=== PATIENT | female | born 1990 | race Caucasian/White ===

== ENCOUNTER 2017-03-04 20:22 | Emergency (ER) | payer BC, MEDICAID ==
[~2017-03-04] VITALS: Ht 165.1 cm; Wt 59.0 kg
[2017-03-04 21:50] VITALS: BP 105/72
== END 2017-03-04 22:05 | disposition home or self-care (01) ==
LOC: ED 21:55
DX: R07.89 Other chest pain (principal); S49.91XA Unspecified injury of right shoulder and upper arm, initial encounter; V49.40XA Driver injured in collision with unspecified motor vehicles in traffic accident, initial encounter; Y93.89 Activity, other specified; Y99.8 Other external cause status; Y92.488 Other paved roadways as the place of occurrence of the external cause
CPT/HCPCS: 71020; 93005; 99284

== ENCOUNTER 2017-06-11 14:48 | Emergency (ER) | payer BC ==
[~2017-06-11] VITALS: Ht 167.6 cm; Wt 57.3 kg
[2017-06-11 15:11] VITALS: BP 98/58
[2017-06-11] MEDS ORDERED: SODIUM CHLORIDE FLUSH 10ML SYR IVF ONE (15:30)
[2017-06-11 15:56] LABS: BASOPHILS # (AUTO) 0.04 x10^3/uL (0-0.1); BASOPHILS % (AUTO) 0 % (0-1); EOSINOPHILS # (AUTO) 0.24 x10^3/uL (0-0.4); EOSINOPHILS % (AUTO) 2 % (1-7); LYMPHOCYTES % (AUTO) 19 % (22-44); MD NO; MEAN CORPUSCULAR HGB CONC 34.2 g/dL (32.4-35.8); MEAN CORPUSCULAR VOLUME 90.8 fL (80-100); MEAN PLATELET VOLUME 8.6 fL (7.4-10.4); MONOCYTES # (AUTO) 0.41 x10^3/uL (0.2-0.8); MONOCYTES % (AUTO) 4 % (2-9); NEUTROPHILS # (AUTO) 8.77 x10^3/uL (1.8-6.8); NEUTROPHILS % (AUTO) 75 % (42-75); PLATELET COUNT 253 x10^3/uL (130-400); RED CELL DISTRIBUTION WIDTH 13.5 % (9.6-15.2)
[2017-06-11 16:09] LABS: ALBUMIN 3.8 g/dL (3.4-5.0); ANION GAP 10 mmol/L (5-15); CALCIUM 9.1 mg/dL (8.5-10.1); CHLORIDE 109 mmol/L (98-107)
[2017-06-11] MEDS ORDERED: ACETAMINOPHEN 325 MG TABLET ONE (17:57)
[2017-06-11] MEDS ORDERED: ACETAMINOPHEN 325 MG TABLET PO ONE (18:00)
== END 2017-06-11 18:49 | disposition home or self-care (01) ==
LOC: ED 16:54
DX: O20.0 Threatened abortion (principal); Z3A.12 12 weeks gestation of pregnancy; O99.331 Smoking (tobacco) complicating pregnancy, first trimester
CPT/HCPCS: 36415; 76801; 80048; 82040; 84702; 85025; 86901; 99285

== ENCOUNTER 2017-07-09 21:21 | Emergency (ER) | payer BC ==
[~2017-07-09] VITALS: Ht 165.1 cm; Wt 58.4 kg
[2017-07-09 21:23] VITALS: BP 99/64
[2017-07-09 23:25] LABS: MICROSCOPIC AUTO
[2017-07-09 23:25] LABS: BASOPHILS # (AUTO) 0.03 x10^3/uL (0-0.1); BASOPHILS % (AUTO) 0 % (0-1); EOSINOPHILS # (AUTO) 0.31 x10^3/uL (0-0.4); EOSINOPHILS % (AUTO) 3 % (1-7); LYMPHOCYTES # (AUTO) 2.46 x10^3/uL (1-3.4); LYMPHOCYTES % (AUTO) 23 % (22-44); MD NO; MEAN CORPUSCULAR HEMOGLOBIN 30.8 pg (27.0-34.8); MEAN CORPUSCULAR HGB CONC 33.7 g/dL (32.4-35.8); MEAN CORPUSCULAR VOLUME 91.3 fL (80-100); MEAN PLATELET VOLUME 8.5 fL (7.4-10.4); MONOCYTES # (AUTO) 0.48 x10^3/uL (0.2-0.8); MONOCYTES % (AUTO) 5 % (2-9); NEUTROPHILS # (AUTO) 7.23 x10^3/uL (1.8-6.8); NEUTROPHILS % (AUTO) 69 % (42-75); PLATELET COUNT 240 x10^3/uL (130-400); RED BLOOD COUNT 4.22 x10^6/uL (3.82-5.3); RED CELL DISTRIBUTION WIDTH 13.4 % (9.6-15.2)
[2017-07-09 23:30] LABS: CULTURE INDICATED? YES
[2017-07-09 23:33] LABS: ALBUMIN 3.1 g/dL (3.4-5.0); ANION GAP 8 mmol/L (5-15); CALCIUM 8.4 mg/dL (8.5-10.1); CHLORIDE 106 mmol/L (98-107)
== END 2017-07-10 00:33 | disposition home or self-care (01) ==
LOC: ED 23:34
DX: O20.0 Threatened abortion (principal)
CPT/HCPCS: 36415; 76805; 80048; 81001; 82040; 85025; 86901; 87086; 99285